=== PATIENT | female | born 1935 | race Caucasian/White ===

== ENCOUNTER 2020-08-01 15:31 | Emergency (ER) | payer MEDICARE ==
[~2020-08-01] VITALS: Ht 154.9 cm; Wt 81.8 kg
[~2020-08-01 15:31] MED LIST: ADVIL PM1 TAB PO; BONIVA150 MG PO; TRAVATAN Z0.004 % OP; VITAMIN D2000 UNI1 PO; VITAMIN D32000 UNIT PO
[2020-08-01] MEDS ORDERED: LOSARTAN POTASS25 MG PO (16:03)
[2020-08-01 16:23] LABS: HEMOGLOBIN 11.3 g/dl (12.0-16.0); IMMATURE GRANULOCYTES 1.4 % (0.0-5.0); MEAN CELL VOLUME 90.2 fL CALC (80.0-100.0); MEAN CORPUSCULAR HGB 27.6 pG CALC (26.0-32.0); MEAN CORPUSCULAR HGB CONC 30.5 g/dL CAL (32.0-36.0); NEUT# 21.82 thou/uL (2.00-7.15); RED BLOOD COUNT 4.1 mill/uL (4.20-5.60); RED CELL DISTRI WIDTH 13.3 % (11.5-15.5)
[2020-08-01 16:34] LABS: ALBUMIN 3.7 g/dL (3.2-5.0); ANION GAP 12 (6-22 (CALC)); BILIRUBIN, TOTAL 0.6 mg/dL (0.0-1.4); BUN 19 mg/dL (8-23); BUN/CREATININE RATIO 19 (12-20 (CALC)); CARBON DIOXIDE 25 mmol/l (22-30); CHLORIDE 94 mmol/l (95-108); GFR 53 ML/MIN (>=60 (CALC)); GFR FOR AFR.AMER. > 60 ML/MIN (>=60 (CALC)); POTASSIUM 4.5 mmol/l (3.5-5.1); SODIUM 127 mmol/l (137-146); TOTAL PROTEIN 8.6 g/dL (6.3-8.2)
[2020-08-01 16:38] LABS: ALKALINE PHOSPHATASE 170 u/l (38-126); SGOT/AST 41 u/l (9-36)
[2020-08-01 19:15] VITALS: BP 128/56
[2020-08-01 19:34] LABS: URINE BILIRUBIN - DIPSTICK NEGATIVE (NEGATIVE); URINE BLOOD DIPSTICK SMALL (NEGATIVE); URINE COLOR YELLOW; URINE GLUCOSE - DIPSTICK NEGATIVE (NEGATIVE); URINE KETONE NEGATIVE (NEGATIVE); URINE LEUK ESTERASE NEGATIVE (NEGATIVE); URINE NITRITE - DIPSTICK NEGATIVE (Negative); URINE PROTEIN - DIPSTICK NEGATIVE (NEG-TRACE); URINE SPECIFIC GRAVITY 1.015; URINE UROBILINOGEN - DIPSTICK 0.2 E.U./dL (0.2)
[2020-08-01 19:35] LABS: URINE SQUAMOUS EPITHELIAL CELL FEW EPI/hpf (0-FEW); URINE WBC 0-2 WBC/hpf (0-5)
== END 2020-08-01 19:43 | disposition short-term general hospital (02) ==
LOC: ED 15:31
PROVIDERS: Family Medicine
DX: A41.9 Sepsis, unspecified organism (principal); R91.8 Other nonspecific abnormal finding of lung field; C51.9 Malignant neoplasm of vulva, unspecified; I10 Essential (primary) hypertension; H35.30 Unspecified macular degeneration; Z20.822 Contact with and (suspected) exposure to COVID-19